=== PATIENT | male | born 1965 | race Caucasian/White ===

== ENCOUNTER 2017-12-01 14:59 | Outpatient (CLI) | payer BC ==
[~2017-12-01 14:59] MED LIST: Iopamidol 370 76% 100 ML VIAL ONE
== END 2017-12-01 15:00 | disposition home or self-care (01) ==
LOC: BICCT 14:59
PROVIDERS: ATTEND Family Medicine
DX: R22.1 Localized swelling, mass and lump, neck (principal)
CPT/HCPCS: 70491

== ENCOUNTER 2017-12-20 08:13 | Day surgery (SDC) | payer BC ==
[2017-12-20] MEDS ORDERED: EPINEPHrine 1 MG/ML AMP ONE (10:04)
[2017-12-20] MEDS ORDERED: Fentanyl 250 MCG/5 ML VIAL ONE (10:06)
[2017-12-20] MEDS ORDERED: Midazolam HCl 2 mg/2 ml Vial ONE (10:06)
[2017-12-20] MEDS ORDERED: Ondansetron HCl/PF 4 MG/2 ML Vial ONE ×2 (10:07→15:56)
[2017-12-20] MEDS ORDERED: methylPREDNISolone Acetate 40 mg/ml Vial ONE (10:07)
[2017-12-20] MEDS ORDERED: Ferric Subsulfate 8 ML BOT ONE (10:42)
[2017-12-20] MEDS ORDERED: Fentanyl 100 MCG/2 ML VIAL ONE ×2 (11:04→12:44)
[2017-12-20] MEDS ORDERED: Digoxin 0.5 MG/2 ML AMP ONE (11:23)
[2017-12-20] MEDS ORDERED: Labetalol HCl 100 MG/20 ML VIAL ONE (11:23)
[2017-12-20] MEDS ORDERED: hydrALAZINE 20 MG/ML VIAL ONE (12:04)
[2017-12-20] MEDS ORDERED: Morphine 4 MG/ML VIAL ONE (12:16)
[2017-12-20] MEDS ORDERED: Hydrocodone-Acetamin 15 ML UDCUP ONE (14:04)
[2017-12-20] MEDS ORDERED: Lidocaine 1% PF 5 ML VIAL ONE (15:56)
[2017-12-20] MEDS ORDERED: Succinylcholine Chloride 20 MG/ML 10 ml SYRINGE FS ONE (15:56)
[2017-12-20] MEDS ORDERED: Dexamethasone 20 MG/5 ML VIAL ONE (15:56)
[2017-12-20] MEDS ORDERED: Glycopyrrolate 0.2 MG/ML 5 ML SYRINGE ONE (15:56)
[2017-12-20] MEDS ORDERED: PROPOFOL 200 MG/20 ML VIAL ONE (15:56)
--- NOTE | 2017-12-21 06:22 | EKG ---
Test Reason : PREOP Blood Pressure : / mmHG Vent. Rate : 084 BPM Atrial Rate : 084 BPM P-R Int : 116 ms QRS Dur : 084 ms QT Int : 364 ms P-R-T Axes : 084 095 071 degrees QTc Int : 430 ms Normal sinus rhythm Rightward axis Borderline ECG No previous ECGs available Confirmed by BANDAR MORILLO ([id number]) on 12/21/2017 6:09:19 AM Referred By: PINKY Confirmed By:BANDAR MORILLO
--- NOTE | 2017-12-21 08:09 | OP ---
DATE OF PROCEDURE: 12/20/2017 PREOPERATIVE DIAGNOSES: 1. Right neck squamous cell carcinoma. 2. Tumor of unknown origin. POSTOPERATIVE DIAGNOSES: 1. Right neck squamous cell carcinoma. 2. Tumor of unknown origin. PROCEDURES: 1. Direct laryngoscopy with biopsy. 2. Bilateral tonsillectomy. SURGEON: Segundo Bazzi M.D. ESTIMATED BLOOD LOSS: 0 mL COMPLICATIONS: None. ANESTHESIA: GETA. PROCEDURE: The patient was taken to the operating room and placed on the table. General endotrachea l anesthesia was obtained by the Anesthesia staff with a 6-0 angled T tube. Following this, le ns, able to see the oral cavity and oropharynx was examined for mucosal lesions. There was some firm ness and fullness in the right tonsil. Other than that, the piriform sinuses, vallecula subglottic a rachele and vocal cords were all within normal limits. The posterior postcricoid mucosa and the pharynge al mucosa appeared to be within normal limits. The tongue base did have a more exophytic lesion that is still mucosally covered on the right base of tongue. This was biopsied using straight cup forcep s. Following this, the Rizwan-Lc mouth gag was used to place the patient in suspension, and a curv ed Allis clamp was used to grasp the tonsils and medialize the tonsils. A subcapsular tonsillectomy was performed bilaterally and hemostasis was controlled. The nasopharynx was examined using the [facility] mirror that was noted to be free of lesions.
== END 2017-12-20 15:15 | disposition home or self-care (01) ==
LOC: SDC 08:13
PROVIDERS: ATTEND Otolaryngology Plastic Surgery within the Head & Neck
PROC: 0CTPXZZ Resection of Tonsils, External Approach (ICD-10-PCS; principal; 2017-12-20)
PROC: 0CBM8ZX Excision of Pharynx, Via Natural or Artificial Opening Endoscopic, Diagnostic (ICD-10-PCS; principal; 2017-12-20)
DX: J35.1 Hypertrophy of tonsils (principal); C01 Malignant neoplasm of base of tongue; F17.200 Nicotine dependence, unspecified, uncomplicated
CPT/HCPCS: 88304; 88305; 93005; 93010; 96374; J0171; J0360; J1030; J1100; J1160; J2001; J2250; J2270; J2405; J2704; J3010

== ENCOUNTER 2018-01-03 10:28 | Outpatient (CLI) | payer BC ==
[2018-01-03 11:25] LABS: Hemoglobin 14.1 g/dL (14.0-18.0); Mean Corpuscular Hemoglobin 31.7 pg (27.0-31.0); Mean Platelet Volume 6.8 fL (7.4-10.4); Platelet Count 366 thou/uL (130-400); RBC Distribution Width 11.5 % (11.5-14.5); Red Blood Cell (RBC) Count 4.45 mill/uL (4.70-6.10); White Blood Cell (WBC) Count 9.5 thou/uL (4.8-10.8)
--- NOTE | 2018-01-03 11:25 | RAD ---
PA AND LATERAL CHEST: History: Pre-operative evaluation. FINDINGS: The heart size is normal. The lungs are expanded without focal areas of consolidation, pneumothorax, or pleural effusions. No acute osseous abnormality is seen. IMPRESSION: No radiographic evidence of acute cardiopulmonary process. POS: [facility]
[2018-01-03 11:41] LABS: Anion Gap 11 mmol/L (10-20); BUN (Urea Nitrogen) 27 mg/dL (8.4-25.7); Calc. Creatinine Clearance 0 mL/min (70-130); Calcium 9.6 mg/dL (7.8-10.44); Carbon Dioxide 27 mmol/L (22-29); Chloride 105 mmol/L (98-107); Estimated GFR-MDRD Greater than 90; Glucose 101 mg/dL (70-105); Potassium 4.3 mmol/L (3.5-5.1); Sodium 139 mmol/L (136-145)
[2018-01-03 11:42] LABS: INR-International Normal Ratio 0.9; Prothrombin Time 12.5 SEC (12.0-14.7)
== END 2018-01-03 10:29 | disposition home or self-care (01) ==
LOC: LABBT 10:28
PROVIDERS: ATTEND Dentist Oral and Maxillofacial Surgery
DX: Z01.818 Encounter for other preprocedural examination (principal); C01 Malignant neoplasm of base of tongue
CPT/HCPCS: 71046; 80048; 85027; 85610

== ENCOUNTER 2018-01-18 08:55 | Outpatient (CLI) | payer BC, OTHER ==
--- NOTE | 2018-01-18 11:42 | PET ---
RADIONUCLIDE PET SCAN WITH CT ATTENUATION CORRECTION: Date: 01/18/18 HISTORY: Squamous cell cancer head and neck. Initial staging. COMPARISON: CT neck dated 12/01/17. FINDINGS: Physiologic uptake of radiotracer is present throughout the enteric system and along each urinary tra ct. Hypermetabolic activity at the right side of the neck is associated with the enlarged partially n ecrotic lymph node. Maximum SUV is 6.7. A smaller focus of hypermetabolic activity at the level of the tongue base centered to the right of m idline shows maximum SUV of 10.6. Uptake along the left side of the pelvis is at the gluteus medius muscle, with the appearance of musc ular uptake. Nondiagnostic CT attenuation correction images show calcified granulomata within the lungs. There is calcification throughout the arterial structures. IMPRESSION: 1. 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 No evidence of distant metastasis. 2. Atherosclerosis. POS: [facility]
== END 2018-01-18 08:56 | disposition home or self-care (01) ==
LOC: PET 08:55
PROVIDERS: ATTEND Internal Medicine Medical Oncology
DX: C01 Malignant neoplasm of base of tongue (principal); I70.90 Unspecified atherosclerosis
CPT/HCPCS: 78815; A9552

== ENCOUNTER 2018-01-30 08:03 | Outpatient (CLI) | payer BC ==
[2018-01-30] MEDS ORDERED: Gadobenate Dimeglumine 529 MG/1 ML (20ML VIAL) ONE (09:00)
--- NOTE | 2018-01-30 11:19 | MRI ---
BRAIN MRI WITH AND WITHOUT CONTRAST: Date: 01/30/18 INDICATION: Tongue malignancy with persistent headaches. No prior brain imaging available. FINDINGS: Ventricular system is normal in size. There is no mass effect or midline shift. Minimal chronic micro vascular ischemic disease is present. There is no intracranial hemorrhage, susceptibility, or evidenc e of acute territorial infarction. No intra-axial enhancing lesions to indicate intracranial metastas is present. Scattered paranasal sinus mucosal thickening is present. Skull base flow-voids are mainta ined. IMPRESSION: 1. No evidence of intracranial metastasis. 2. No acute intracranial abnormalities. 3. Findings most consistent with minimal chronic microvascular ischemic disease. POS: [facility]
== END 2018-01-30 08:04 | disposition home or self-care (01) ==
LOC: SCSMRI 08:03
PROVIDERS: ATTEND Radiology Radiation Oncology
DX: C01 Malignant neoplasm of base of tongue (principal); G44.52 New daily persistent headache (NDPH)
CPT/HCPCS: 70553; A9579

== ENCOUNTER 2018-03-12 20:53 | Emergency (ER) | payer BC ==
[2018-03-12 22:07] LABS: #Lymphocytes 0.6 thou/uL (1.20-3.40); #Monocytes 0.6 thou/uL (0.11-0.59); #Neutrophils 3.2 thou/uL (1.40-6.50); %Basophils 0.7 % (0.0-1.0); %Lymphocytes 14.2 % (21.0-51.0); %Monocytes 12.8 % (0.0-10.0); %Neutrophils 71.3 % (42.0-75.0); Hemoglobin 12.6 g/dL (14.0-18.0); Mean Corpuscular Hemoglobin 32.8 pg (27.0-31.0); Mean Platelet Volume 6.6 fL (7.4-10.4); Platelet Count 210 thou/uL (130-400); RBC Distribution Width 12.5 % (11.5-14.5); Red Blood Cell (RBC) Count 3.82 mill/uL (4.70-6.10); White Blood Cell (WBC) Count 4.5 thou/uL (4.8-10.8)
[2018-03-12 22:28] LABS: ALT (SGPT) 17 U/L (8-55); AST (SGOT) 18 U/L (5-34); Albumin 4.3 g/dL (3.5-5.0); Alkaline Phosphatase 58 U/L (40-150); Anion Gap 11 mmol/L (10-20); BUN (Urea Nitrogen) 26 mg/dL (8.4-25.7); Bilirubin, Total 0.4 mg/dL (0.2-1.2); Calc. Creatinine Clearance 0 mL/min (70-130); Calcium 9.6 mg/dL (7.8-10.44); Carbon Dioxide 28 mmol/L (22-29); Chloride 101 mmol/L (98-107); Estimated GFR-MDRD 84; Globulin 2.5 g/dL (2.4-3.5); Glucose 152 mg/dL (70-105); Potassium 4.2 mmol/L (3.5-5.1); Protein, Total 6.8 g/dL (6.0-8.3); Sodium 136 mmol/L (136-145)
--- NOTE | 2018-03-12 23:49 | ULT ---
RIGHT UPPER EXTREMITY VENOUS DOPPLER: HISTORY: Pain. IV infiltration. COMPARISON: None. TECHNIQUE: Real-time, mcclelland-scale, color Doppler with spectral analysis of the right upper extremity venous syste m is performed. FINDINGS: The internal jugular was accessed. The brachial, basilic, cephalic, ulnar, and radial veins were int errogated. There is a superficial partial thrombosis of the right cephalic vein. The deep veins of the right upper extremity are patent. IMPRESSION: Patent deep veins with superficial thrombus in the right cephalic vein. This occurs at the forearm, to the wrist. POS: [facility]
== END 2018-03-12 23:52 | disposition home or self-care (01) ==
LOC: ERS 20:53
DX: T80.1XXA Vascular complications following infusion, transfusion and therapeutic injection, initial encounter (principal); I80.8 Phlebitis and thrombophlebitis of other sites; F17.210 Nicotine dependence, cigarettes, uncomplicated; Z71.6 Tobacco abuse counseling; Z79.899 Other long term (current) drug therapy
CPT/HCPCS: 36415; 80053; 83605; 85025

== ENCOUNTER 2018-05-03 10:02 | Outpatient (CLI) | payer BC ==
[2018-05-03] MEDS ORDERED: ISOVUE-370 76%-LOCM 1 ML ONE (13:03)
== END 2018-05-03 10:03 | disposition home or self-care (01) ==
LOC: BICCT 10:02
PROVIDERS: ATTEND Radiology Radiation Oncology
DX: C01 Malignant neoplasm of base of tongue (principal); C96.9 Malignant neoplasm of lymphoid, hematopoietic and related tissue, unspecified; R59.0 Localized enlarged lymph nodes; Z92.3 Personal history of irradiation; Z92.21 Personal history of antineoplastic chemotherapy
CPT/HCPCS: 70491

== ENCOUNTER 2019-09-17 08:16 | Emergency (ER) | payer BC, SELFPAY ==
[2019-09-17 09:20] LABS: #Eosinphils 0.3 thou/uL (0.0-0.7); #Lymphocytes 1.1 thou/uL (1.20-3.40); #Monocytes 0.5 thou/uL (0.11-0.59); #Neutrophils 4.4 thou/uL (1.40-6.50); %Basophils 0.5 % (0.0-1.0); %Eosinophils 4.1 % (0.0-10.0); %Lymphocytes 17.5 % (21.0-51.0); %Monocytes 7.9 % (0.0-10.0); %Neutrophils 70.1 % (42.0-75.0); Mean Corpuscular HGB CONC 33.9 g/dL (32.0-36.0); Mean Corpuscular Hemoglobin 31.5 pg (27.0-31.0); Mean Corpuscular Volume 93.1 fL (78.0-98.0); Mean Platelet Volume 7.3 fL (7.4-10.4); Platelet Count 283 thou/uL (130-400); RBC Distribution Width 11.6 % (11.5-14.5); Red Blood Cell (RBC) Count 4.43 mill/uL (4.70-6.10); White Blood Cell (WBC) Count 6.3 thou/uL (4.8-10.8)
--- NOTE | 2019-09-17 09:28 | CT ---
Neck CT with IV contrast: 09/17/2019 COMPARISON: None HISTORY: Palpable abnormality in the midline posterior neck TECHNIQUE: Axial CT imaging at 2.5 mm intervals from the skull base through the lung apices with IV c ontrast. Coronal and sagittal reformatted imaging obtained. FINDINGS: Posterior neck mass in right paraspinal region is the provided history. No area of palpable concern is marked on the patient's skin. Imaged inferior brain parenchyma grossly unremarkable. Mild mucosal thickening of the left maxillary sinus. The retroantral fat and parapharyngeal fat appea rs clear bilaterally. The parotid glands and submandibular glands appear grossly unremarkable. No mass lesion is noted in the region of the tonsillar pillars. Epiglottis and preepiglottic fat, hyoid bone, thyroid cartilage, cricoid cartilage, level of the glottis, and thyroid gland demonstrate no acute findings. Prominent subpleural emphysematous changes are noted within bilateral lung apices, ri ght greater than left. No posterior paraspinal mass is appreciated on this examination. There is a focal nonspecific area of skin thickening just to the right of midline at the axial level of the C4-5 disc space. In this region there is subtle increased density within the subcutaneous fat. Findings may be related to an i nflammatory/infectious process, such as cellulitis. No mass lesion or abscess is apparent in this region. The adjacent paraspinal musculature posteriorly in the right paramidline region appear slight ly edematous. The vascular structures of the neck appear patent. No lymphadenopathy is noted within the neck. There are degenerative changes noted within the cervical spine. Disc bulge noted at C5-6 and to a les ser degree, C4-5. There is uncovertebral osteophyte formation on the left at C5-6 and C6-7 and on the right at C5-6. No worrisome lytic or blastic bone lesion. IMPRESSION: No mass lesion or evidence of lymphadenopathy. In the right posterior paraspinal region a t the axial level of the C4-5 disc space there is mild skin thickening with subcutaneous fat stranding and mild muscular edema suggesting an inflammatory/infectious process, such as cellulitis. Recommend short-term follow-up imaging to document resolution following treatment.
[2019-09-17 09:32] LABS: ALT (SGPT) 8 U/L (8-55); AST (SGOT) 15 U/L (5-34); Albumin 4.3 g/dL (3.5-5.0); Alkaline Phosphatase 84 U/L (40-110); Anion Gap 14 mmol/L (10-20); BUN (Urea Nitrogen) 13 mg/dL (8.4-25.7); Bilirubin, Total 0.3 mg/dL (0.2-1.2); Calc. Creatinine Clearance 0 mL/min (70-130); Calcium 9.1 mg/dL (7.8-10.44); Carbon Dioxide 23 mmol/L (22-29); Chloride 106 mmol/L (98-107); Estimated GFR-MDRD 86; Globulin 2.9 g/dL (2.4-3.5); Glucose 94 mg/dL (70-105); Potassium 4.1 mmol/L (3.5-5.1); Protein, Total 7.2 g/dL (6.0-8.3); Sodium 139 mmol/L (136-145)
[2019-09-17] MEDS ORDERED: Iopamidol-370 76% 500 ML 1 ML ONE (16:11)
== END 2019-09-17 10:20 | disposition home or self-care (01) ==
LOC: ERS 08:16
DX: L03.221 Cellulitis of neck (principal); F17.210 Nicotine dependence, cigarettes, uncomplicated
CPT/HCPCS: 70491; 80053; 85025; 96360; 96361; Q9967